=== PATIENT | male | born 1955 | race Caucasian/White ===

== ENCOUNTER 2021-04-26 15:17 | Inpatient (IN) | payer OTHER ==
[2021-04-26 19:22] VITALS: BMI 32.8
[2021-04-26] MEDS ORDERED: BISMUTH SUBSALICYLATE 524 MG/30 ML PO PRN (19:34)
[2021-04-26] MEDS ORDERED: MENTHOL/PHENOL 1 EACH UD MM PRN (19:34)
[2021-04-26] MEDS ORDERED: METHOCARBAMOL 500 MG TABLET PO PRN (19:34)
[2021-04-26] MEDS ORDERED: ONDANSETRON *ODT* 4 MG TABLET SL PRN (19:34)
[2021-04-26] MEDS ORDERED: MAGNESIUM HYDROX 2400MG/30ML ORAL SUSPENSION 30 ML CUP PO PRN (19:34)
[2021-04-26] MEDS ORDERED: ACETAMINOPHEN 325 MG TABLET (FP) PO PRN (19:34)
[2021-04-26] MEDS ORDERED: MAGNESIUM CITRATE 300 ML BOTTLE PO PRN (19:34)
[2021-04-26] MEDS ORDERED: MAG HYDROX/AL HYDROX/SIMETH 30 ML UNIT-DOSE CUP PO PRN (19:34)
[2021-04-26] MEDS ORDERED: NICOTINE POLACRILEX 2 MG GUM BUC PRN (19:34)
[2021-04-26] MEDS ORDERED: IBUPROFEN 400 MG TABLET (FP) PO PRN (19:34)
[2021-04-26] MEDS ORDERED: LORazepam 1 MG TABLET PO PRN (19:39)
[2021-04-26] MEDS ORDERED: LORazepam 2 MG TABLET PO ONE (19:39)
[2021-04-26] MEDS ORDERED: ERGOCALCIFEROL (VIT D2) 50,000 UNIT (1.25 MG) CAPSULE PO SCH (19:45)
[2021-04-26] MEDS ORDERED: LORazepam 2 MG TABLET ONE (22:51)
[2021-04-27] MEDS: MELATONIN 5 MG TABLETS PO SCH ×2 (02:47→22:34)
[2021-04-27] MEDS: ATORVASTATIN CA 40 MG TABLET (FP) PO SCH ×2 (02:47→22:32)
[2021-04-27] MEDS: THIAMINE HCL 100 MG TABLET (FP) PO SCH ×2 (02:48→22:32)
[2021-04-27] MEDS: LORazepam 2 MG TABLET PO SCH ×5 (02:49→22:32)
[2021-04-27] MEDS ORDERED: LORazepam 2 MG TABLET ONE ×2 (05:12→10:16)
[2021-04-27] MEDS: PRENATAL VITAMINS W/ FOLIC ACID TABLET (FP) PO SCH (10:21)
[2021-04-27] MEDS: amLODIPine BESYLATE 10 MG TABLET (FP) PO SCH (10:58)
[2021-04-27] MEDS: PANTOPRAZOLE 40 MG TABLET PO SCH (10:58)
[2021-04-27] MEDS: NICOTINE 14 MG/24 HOURS TOPICAL PATCH TD SCH (10:58)
[2021-04-27 11:07] LABS: HEMATOCRIT 43.3 % (35.4-49); HEMOGLOBIN 14.4 GM/dL (11.7-16.9); MCH 31.7 pg (25.7-33.7); MCHC 33.1 g/dl (32.0-35.9); MEAN CELL VOLUME 95.5 fl (80-96); MEAN PLT VOLUME 8.9 fl (7.5-11.1); PLATELET COUNT 283 10^3/uL (134-434); RBC 4.54 M/mm3 (4.00-5.60); RDW 13.5 % (11.9-15.9); WHITE BLOOD COUNT 8.4 K/mm3 (4.0-10.0)
[2021-04-27 11:08] LABS: ALBUMIN 3.6 g/dl (3.4-5.0); BLOOD UREA NITROGEN 12.7 mg/dL (7-18); CALCIUM 9.3 mg/dL (8.5-10.1)
[2021-04-27 11:11] LABS: CREATININE 1.1 mg/dL (0.55-1.3)
[2021-04-27 11:13] LABS: BILIRUBIN,TOTAL 0.2 mg/dL (0.2-1); TOT PROT 7.2 g/dl (6.4-8.2)
[2021-04-28] MEDS: LORazepam 1 MG TABLET PO SCH ×4 (05:43→22:21)
[2021-04-28] MEDS: PRENATAL VITAMINS W/ FOLIC ACID TABLET (FP) PO SCH (10:14)
[2021-04-28] MEDS: LISINOPRIL 10 MG TABLET PO SCH (10:14)
[2021-04-28] MEDS: amLODIPine BESYLATE 10 MG TABLET (FP) PO SCH (10:14)
[2021-04-28] MEDS: NICOTINE 14 MG/24 HOURS TOPICAL PATCH TD SCH (10:15)
[2021-04-28] MEDS: PANTOPRAZOLE 40 MG TABLET PO SCH (10:15)
[2021-04-28 13:55] LABS: HIV INTERPRETATION NEGATIVE (NEGATIVE)
[2021-04-28] MEDS: THIAMINE HCL 100 MG TABLET (FP) PO SCH (22:21)
[2021-04-28] MEDS: ATORVASTATIN CA 40 MG TABLET (FP) PO SCH (22:21)
[2021-04-28] MEDS: ACETAMINOPHEN 325 MG TABLET (FP) PO PRN (22:23)
[2021-04-28] MEDS: MELATONIN 5 MG TABLETS PO SCH (22:24)
[2021-04-29] MEDS ORDERED: LORazepam 0.5 MG TABLET PO PRN
[2021-04-29] MEDS: LORazepam 0.5 MG TABLET PO SCH ×4 (05:48→22:22)
[2021-04-29] MEDS: LISINOPRIL 10 MG TABLET PO SCH (10:24)
[2021-04-29] MEDS: PANTOPRAZOLE 40 MG TABLET PO SCH (10:24)
[2021-04-29] MEDS: PRENATAL VITAMINS W/ FOLIC ACID TABLET (FP) PO SCH (10:24)
[2021-04-29] MEDS: amLODIPine BESYLATE 10 MG TABLET (FP) PO SCH (10:25)
[2021-04-29] MEDS: NICOTINE 14 MG/24 HOURS TOPICAL PATCH TD SCH (10:25)
[2021-04-29] MEDS: ATORVASTATIN CA 40 MG TABLET (FP) PO SCH (22:22)
[2021-04-29] MEDS: THIAMINE HCL 100 MG TABLET (FP) PO SCH (22:22)
[2021-04-29] MEDS: MELATONIN 5 MG TABLETS PO SCH (22:23)
[2021-04-29] MEDS: ACETAMINOPHEN 325 MG TABLET (FP) PO PRN (22:24)
[2021-04-30] MEDS ORDERED: LORazepam 0.5 MG TABLET PO ONE (05:00)
[2021-04-30 06:27] VITALS: BP 112/66; PULSE 66; TEMP 97.5
[2021-04-30] MEDS: amLODIPine BESYLATE 10 MG TABLET (FP) PO SCH (08:49)
[2021-04-30] MEDS: LISINOPRIL 10 MG TABLET PO SCH (08:50)
[2021-04-30] MEDS ORDERED: ERGOCALCIFEROL (VIT D2) 50,000 UNIT (1.25 MG) CAPSULE PO SCH ×2 (10:00)
== END 2021-04-30 08:52 | disposition home or self-care (01) | DRG 774 ==
LOC: YASAS 15:17 → Y6N 04-27 10:07
PROVIDERS: ADMIT Allergy & Immunology; ATTEND Allergy & Immunology
PROC: HZ2ZZZZ Detoxification Services for Substance Abuse Treatment (ICD-10-PCS; principal; 2021-04-27)
DX: F10.230 Alcohol dependence with withdrawal, uncomplicated (principal); F14.20 Cocaine dependence, uncomplicated; F17.210 Nicotine dependence, cigarettes, uncomplicated; I10 Essential (primary) hypertension; E55.9 Vitamin D deficiency, unspecified; E78.5 Hyperlipidemia, unspecified; K21.9 Gastro-esophageal reflux disease without esophagitis; G47.00 Insomnia, unspecified; E66.9 Obesity, unspecified; Z68.32 Body mass index [BMI] 32.0-32.9, adult
CPT/HCPCS: 36415; 80053; 82962; 85027; 86780; 87389; 93005; 93010; C9803; U0003; U0005

== ENCOUNTER 2025-02-20 11:59 | Inpatient (IN) | payer OTHER ==
[2025-02-20 12:57] VITALS: BMI 37.3
[2025-02-20] MEDS ORDERED: POLYETHYLENE GLYCOL (HEALTHYLAX) 3350 17 GM PACKET PO PRN (13:17)
[2025-02-20] MEDS ORDERED: NICOTINE POLACRILEX 2 MG LOZENGE BC PRN (13:17)
[2025-02-20] MEDS ORDERED: BENZOCAINE/MENTHOL (CHLORASEPTIC ) LOZENGE MM PRN (13:17)
[2025-02-20] MEDS ORDERED: MAGNESIUM HYDROX 2400MG/30ML ORAL SUSPENSION 30 ML CUP PO PRN (13:17)
[2025-02-20] MEDS ORDERED: guaiFENesin 600 MG TABLET.ER (FP) PO PRN (13:17)
[2025-02-20] MEDS ORDERED: BISMUTH SUBSALICYLATE 262 MG/15 ML BTL PO PRN (13:17)
[2025-02-20] MEDS ORDERED: BENZONATATE 200 MG CAPSULE PO PRN (13:17)
[2025-02-20] MEDS ORDERED: NALOXONE (NARCAN) HCL 4 MG/0.1 ML SPRAY NS PRN (13:17)
[2025-02-20] MEDS ORDERED: NICOTINE POLACRILEX 2 MG GUM BUC PRN (13:17)
[2025-02-20] MEDS ORDERED: ACETAMINOPHEN 325 MG TABLET (FP) PO PRN (13:17)
[2025-02-20] MEDS ORDERED: LOPERAMIDE HCL 2 MG CAPSULE PO PRN (13:17)
[2025-02-20] MEDS ORDERED: IBUPROFEN 600 MG TABLET (FP) PO PRN (13:17)
[2025-02-20] MEDS ORDERED: ONDANSETRON *ODT* 4 MG TABLET SL PRN (13:17)
[2025-02-20] MEDS ORDERED: IBUPROFEN 400 MG TABLET (FP) PO PRN (13:17)
[2025-02-20] MEDS ORDERED: amLODIPine BESYLATE 5 MG TABLET (FP) ONE (16:40)
[2025-02-20] MEDS: amLODIPine BESYLATE 10 MG TABLET (FP) PO ONE (16:55)
[2025-02-20] MEDS: LISINOPRIL 10 MG TABLET PO SCH (18:29)
[2025-02-20] MEDS: THIAMINE 100 MG TABLET PO SCH (21:42)
[2025-02-20] MEDS: ATORVASTATIN CA 40 MG TABLET (FP) PO SCH (21:42)
[2025-02-20] MEDS: MELATONIN 5 MG TABLETS PO SCH (21:42)
[2025-02-21] MEDS: amLODIPine BESYLATE 10 MG TABLET (FP) PO SCH (10:26)
[2025-02-21] MEDS: PRENATAL VITAMINS W/ FOLIC ACID TABLET (FP) PO SCH (10:26)
[2025-02-21 11:40] LABS: HEMATOCRIT 43.4 % (40.1-51.0); HEMOGLOBIN 13.8 g/dL (13.7-17.5); MCHC 31.8 g/dl (32.3-36.5); MEAN CELL VOLUME 97.7 fl (79.0-92.2); MEAN PLT VOLUME 11.1 fl (9.4-12.4); PLATELET COUNT 278 x10^3/uL (163-337); RDW 12.5 % (12.2-16.4)
[2025-02-21] MEDS: MAG HYDROX/AL HYDROX/SIMETH 30 ML UNIT-DOSE CUP PO PRN (12:45)
[2025-02-21] MEDS: PANTOPRAZOLE 40 MG TABLET PO SCH (14:15)
[2025-02-21] MEDS: NICOTINE 21 MG/24 HOURS TOPICAL PATCH TD SCH (14:16)
[2025-02-21 14:47] LABS: POTASSIUM 3.6 mmol/L (3.5-5.1)
[2025-02-21 14:50] LABS: CALCIUM 10.1 mg/dL (8.5-10.1)
[2025-02-21 14:51] LABS: ALBUMIN 3.7 g/dl (3.4-5.0); BLOOD UREA NITROGEN 18.2 mg/dL (7-18)
[2025-02-21 14:54] LABS: CREATININE 1.2 mg/dL (0.55-1.3)
[2025-02-21 14:56] LABS: BILIRUBIN,TOTAL 0.4 mg/dL (0.2-1)
[2025-02-22 08:45] VITALS: BP 160/88; PULSE 71; RESP 18; TEMP 97.8
== END 2025-02-22 10:01 | disposition home or self-care (01) | DRG 774 ==
LOC: YASAS 11:59 → Y3N 16:41
PROVIDERS: ADMIT Allergy & Immunology; ATTEND Allergy & Immunology
PROC: HZ2ZZZZ Detoxification Services for Substance Abuse Treatment (ICD-10-PCS; principal; 2025-02-20)
DX: F10.20 Alcohol dependence, uncomplicated (principal); F14.20 Cocaine dependence, uncomplicated; F17.210 Nicotine dependence, cigarettes, uncomplicated; E78.5 Hyperlipidemia, unspecified; G47.00 Insomnia, unspecified; I10 Essential (primary) hypertension; K21.9 Gastro-esophageal reflux disease without esophagitis; M19.90 Unspecified osteoarthritis, unspecified site
CPT/HCPCS: 36415; 80053; 80305; 80307; 85027; 86780; 93005; 93010